=== PATIENT | male | born 1990 | race African-American/Black ===

== ENCOUNTER 2019-05-24 02:56 | Outpatient (CLI) | payer MEDICAID | END 2019-05-24 02:57 | disposition critical access hospital (66) | LOC: EMS 02:56 | PROVIDERS: ATTEND Surgery | DX: R06.00 Dyspnea, unspecified (principal); Z59.0 Homelessness | CPT/HCPCS: A0425; A0429 ==

== ENCOUNTER 2019-05-24 03:19 | Emergency (ER) | payer MEDICAID ==
--- NOTE | 2019-05-24 03:30 | ED Physician Documentation ---
PD HPI DYSPNEA - Stated complaint Stated Complaint: SOA - Chief complaint Chief Complaint: Resp - History obtained from History obtained from: Patient, EMS - History of Present Illness Timing - onset: Unknown - Additional information Additional information: [place] to bring him to the emergency department for difficulty breathing. staff went into another room to call for ambulance and when they returned the patient was smoking marijuana. patient has odd affect, making HPI and ROS difficult to obtain and of questionable accuracy. he tells me he is here for RLE pain. during H+P, he tells me he has chest pain. eventually he reverts back to telling me he is here for difficulty breathing Review of Systems Constitutional: denies: Fever Cardiac: reports: Chest pain / pressure. denies: Pedal edema Respiratory: reports: Dyspnea. denies: Cough GI: reports: Reviewed and negative Musculoskeletal: reports: Extremity pain PD PAST MEDICAL HISTORY - Past Medical History Past Medical History: Yes Cardiovascular: None Respiratory: Other Neuro: None Endocrine/Autoimmune: None GI: None : None HEENT: None Psych: None Musculoskeletal: None Derm: None - Past Surgical History Past Surgical History: No - Allergies Allergies/Adverse Reactions: Allergies Allergy/AdvReac Type Severity Reaction Status Date / Time No Known Drug Allergies Allergy Verified 05/24/19 04:16 - Social History Does the pt smoke?: No Smoking Status: Never smoker Does the pt drink ETOH?: No Does the pt have substance abuse?: No - Immunizations Immunizations are current?: No PD ED PE NORMAL - Vitals Vital signs reviewed: Yes - General General: Alert and oriented X 3, No acute distress, Well developed/nourished - HEENT HEENT: Atraumatic, PERRL, EOMI, Moist mucous membranes - Neck Neck: Supple, no meningeal sign - Cardiac Cardiac: RRR, No murmur - Respiratory Respiratory: No respiratory distress, Clear bilaterally - Extremities Extremities: No deformity, No tenderness to palpate, Normal ROM s pain, No edema PD ED PE EXPANDED - Psych Psych: Other (odd affect) Results - Vitals Vitals: Oxygen O2 Source Room air PD MEDICAL DECISION MAKING - ED course Complexity details: considered differential, d/w patient ED course: as noted in HPI, patient has odd affect and his answers vary at times. he initially tells me he is here for cardiovascular problem; when I ask him to tell me his symptoms, he says he has right leg pain. but when I ask him to show me where it hurts, he points to his lower chest. when I ask him about difficulty breathing, he then says this is his chief complaint, and not the leg or chest pain. strong odor of marijuana from patient and he says he has marijuana on him. he frequently is asking for food. shortly after I performed my initial H+P, he insisted on leaving. Despite his odd affect, he is in NAD during ED stay. There is no evidence if injury, he has stable vital signs, and no elements of H+P suggest he is imminent danger to self or others, nor sufficient cause to hold patient in ED against his will Departure - Departure Disposition: 01 Home, Self Care Clinical Impression: Dyspnea Condition: Good Instructions: ED Dyspnea Shortness of Breath Discharge Date/Time: 05/24/19 04:31
[2019-05-24 04:31] VITALS: BP 114/80
== END 2019-05-24 04:31 | disposition home or self-care (01) ==
LOC: EDBD → ED 03:19
DX: R06.00 Dyspnea, unspecified (principal); R07.9 Chest pain, unspecified; M79.604 Pain in right leg; F12.90 Cannabis use, unspecified, uncomplicated
CPT/HCPCS: 93005; 99282; 99283

== ENCOUNTER 2019-05-28 02:54 | Outpatient (CLI) | payer MEDICAID | END 2019-05-28 02:55 | disposition critical access hospital (66) | LOC: EMS 02:54 | PROVIDERS: ATTEND Surgery | DX: R45.89 Other symptoms and signs involving emotional state (principal); R06.02 Shortness of breath; Z59.0 Homelessness | CPT/HCPCS: A0425; A0429; A0999 ==

== ENCOUNTER 2019-05-28 03:11 | Emergency (ER) | payer MEDICAID ==
[2019-05-28 03:18] VITALS: BP 128/87
== END 2019-05-28 04:19 | disposition left against medical advice (07) ==
LOC: EDUNIT# → ED 03:11
DX: Z53.21 Procedure and treatment not carried out due to patient leaving prior to being seen by health care provider (principal)

== ENCOUNTER 2020-05-18 19:50 | Outpatient (CLI) | payer MEDICAID | END 2020-05-18 19:51 | disposition critical access hospital (66) | LOC: EMS 19:50 | PROVIDERS: ATTEND Surgery | DX: R45.1 Restlessness and agitation (principal) | CPT/HCPCS: A0425; A0429; A0999 ==

== ENCOUNTER 2020-05-18 20:08 | Emergency (ER) | payer MEDICAID ==
--- NOTE | 2020-05-18 20:18 | ED Physician Documentation ---
History of Present Illness - Stated complaint Stated Complaint: DEHYDRATION - History obtained from History obtained from: Patient - Additonal information Additional information: 30-year-old gentleman presents by ambulance for "dehydration." He is a vague historian, when asked him why he got dehydrated he says he cannot drink water but can drink Gatorade. I asked him why he cannot drink water and he sort of trails off. He denies any other specific complaints except for muscle cramps of a days duration. Denies abdominal pain, vomiting, diarrhea. Says he is not on any medications nor does he use drugs or alcohol. Review of Systems Constitutional: denies: Fever, Chills, Fatigue Cardiac: denies: Chest pain / pressure Respiratory: denies: Dyspnea GI: denies: Abdominal Pain, Nausea, Vomiting, Diarrhea PD PAST MEDICAL HISTORY - Past Medical History Cardiovascular: None Respiratory: Other Neuro: None Endocrine/Autoimmune: None GI: None : None HEENT: None Psych: None Musculoskeletal: None Derm: None - Past Surgical History Past Surgical History: No - Allergies Allergies/Adverse Reactions: Allergies Allergy/AdvReac Type Severity Reaction Status Date / Time No Known Drug Allergies Allergy Verified 05/18/20 20:14 - Social History Does the pt smoke?: No Smoking Status: Never smoker Does the pt drink ETOH?: No Does the pt have substance abuse?: Yes - Immunizations Immunizations are current?: No PD ED PE NORMAL - Vitals Vital signs reviewed: Yes - General General: No acute distress, Well developed/nourished, Other (Odd affect) - Neck Neck: Supple, no meningeal sign - Abdomen Abdomen: Non tender - Derm Derm: No rash - Extremities Extremities: No edema - Neuro Neuro: Alert and oriented X 3, Normal speech Results - Vitals Vitals: Vital Signs - 24 hr 05/18/20 05/18/20 20:14 20:16 Temperature 37.1 C Heart Rate 98 Heart Rate [ 94 Sitting] Heart Rate [ 87 Supine] Respiratory 18 Rate Blood Pressure 166/90 H Blood Pressure 145/101 H [Sitting] Blood Pressure 131/82 H [Supine] O2 Saturation 100 Oxygen O2 Source Room air PD MEDICAL DECISION MAKING - ED course ED course: 30-year-old gentleman presents with vague symptoms of dehydration, although this is not corroborated on history or physical. Plans to do blood work and orthostatics but he ambulated out of the department before completing the work- up. Departure - Departure Disposition: ED [place] Clinical Impression: Muscle cramps Discharge Date/Time: 05/18/20 20:24
[2020-05-18 20:30] VITALS: BP 131/82
== END 2020-05-18 20:24 | disposition left against medical advice (07) ==
LOC: EDUNIT# → ED 20:08
DX: R25.2 Cramp and spasm (principal)
CPT/HCPCS: 80048; 82550; 99282; 99283